=== PATIENT | female | born 1985 | race Caucasian/White ===

== ENCOUNTER 2019-07-27 19:05 | Inpatient (IN) | payer OTHER ==
[2019-07-27] MEDS ORDERED: MISOPROSTOL 100 MCG TABLET PV PRN (20:29)
--- NOTE | 2019-07-27 21:23 | HP ---
Past Medical History - Primary Care Physician PCP:: Jero Gong - Admission Chief Complaint: 33yo P0 with at EGA 37w3d admitted for labor indx due to IUFD. History of Present Illness: complicated by: IUFD diagnosed earlier today Maternal obesity elevated early GCT, normal GTT x 2 History Source: Patient, Medical Record Limitations to Obtaining History: No Limitations - Past Medical History [employer]ATE: No: Alzheimer's, CVA, Dementia, Migraine, Multiple Sclerosis, Peripheral Neuropathy, Parkinson's, Seizure, Syncope, TIA, Vertigo, Other Cardiovascular: No: AFIB, Aneurysm, Aortic Insufficiency, Aortic Stenosis, CAD, CHF, Deep Vein Thrombosis, HTN, Hyperlipdemia, DE, Mitral Insufficiency, Mitral Stenosis, Murmur, Pulmonary Hypertension, Other Pulmonary: No: Asthma, Bronchitis, Cancer, COPD, O2 Dependent, Pneumonia, Previously Intubated, Pulmonary Embolus, Pulmonary Fibrosis, Sleep Apnea, Other Gastrointestinal: No: Ascites, Cancer, Constipation, Crohn's Disease, Diverticulitis, Diverticulosis, Esophageal Varices, Gastritis, GERD, GI Bleed, Hemorrhoids, Hiatal Hernia, Inflamatory Bowel Disease, Irritable Bowel Disease, Pancreatitis, Peptic Ulcer Disease, Ulcerative Colitis, Other Hepatobiliary: No: Cirrhosis, Cholelithiasis, Cholecystitis, Choledocholithiasis , Hepatitis A, Hepatitis B, Hepatitis C, Other Renal/: No: Renal Failure, Renal Inusuff, BPH, Cancer, Hematuria, Hemodialysis , Neurogenic Bladder, Renal Calculi, UTI, Other Reproductive: No: Ectopic , Endometriosis, Fibroids, PID, Polycystic Ovary Syndrome, Postmenopausal, Other ...: 1 ...Para: 0 ... Weeks Gestation by Dates: 37.3 Additional OB History: Obesity, low wt gain Heme/Onc: No: Anemia, B12 Deficiency, Bleeding Disorder, Cancer, Current Chemotherapy, Current Radiation Therapy, Hemochromatosis, Hypercoaguable State, Myeloproliferative Synd, Sickle Cell Disease, Sickle Cell Trait, Thrombocytopenia, Other Infectious Disease: No: AIDS, C-Diff, Herpes Zoster, HIV, MRSA, STD's, Tuberculosis, VREF, Other Psych: No: Addictions, Anxiety, Bipolar, Depression, Panic, Psychosis, Schizophrenia, Other Musculoskeletal: No: Bursitis, Chronic low back pain, Hemiparesis, Hemiplegia, Osteoarthritis, Paraplegia, Other Rheumatology: No: Fibromyalgia, Gout, Lupus, Rheumatoid Arthritis, Sarcoidosis, Vasculitis, Other ENT: No: Allergic Rhinitis, Sinusitis, Other Endocrine: Yes: Other (PCOS) Dermatology: No: Basal Cell, Cellulitis, Eczema, Melanoma, Psoriasis, Squamous Cell, Other - Past Surgical History Past Surgical History: Yes: None Hx Myomectomy: No Hx Transabdominal Cerclage: No - Smoking History Have you smoked in the past 12 months: No - Alcohol/Substance Use Hx Alcohol Use: No History of Substance Use: reports: None - Social History Usual Living Arrangement: Yes: With Significant Other ADL: Independent Occupation: Catering History of Recent Travel: No Home Medications - Allergies Allergies/Adverse Reactions: Allergies Allergy/AdvReac Type Severity Reaction Status Date / Time No Known Allergies Allergy Verified 07/27/19 20:22 Family Medical History Family Hx Cancer: Grandmother (paternal) (breast), Father (stomach) Review of Systems - Review of Systems Constitutional: reports: No Symptoms Eyes: reports: No Symptoms HENT: reports: No Symptoms Neck: reports: No Symptoms Cardiovascular: reports: No Symptoms Respiratory: reports: No Symptoms Gastrointestinal: reports: No Symptoms Genitourinary: reports: No Symptoms Breasts: reports: No Symptoms Reported Musculoskeletal: reports: No Symptoms Integumentary: reports: No Symptoms Neurological: reports: No Symptoms Endocrine: reports: No Symptoms Hematology/Lymphatic: reports: No Symptoms Psychiatric: reports: No Symptoms Pain Intensity: 0 Physical Exam - Maternity Constitutional: Yes: Well Nourished, No Distress, Calm Eyes: Yes: WNL, Conjunctiva Clear, EOM Intact HENT: Yes: WNL, Atraumatic, Normocephalic Neck: Yes: WNL, Supple, Trachea Midline Cardiovascular: Yes: WNL, Regular Rate and Rhythm Lungs: Clear to auscultation, Normal air movement - Abdominal Exam/OB Fundal Height: 38 Number of Fetuses: Single Presentation: Vertex Contractions: No - Vaginal Exam/OB Vaginal Bleediing: No Dilatation (cm): 0 Effacement (%): 0 Amniotic Membrane Status: Intact Presentation: Vertex/Position Station: -4 - Physical Exam Musculoskeletal: Yes: WNL Extremities: Yes: WNL Edema: No Integumentary: Yes: WNL Deep Tendon Reflex Grade: Normal +2 ...Motor Strength: WNL Psychiatric: Yes: WNL, Alert, Oriented Hemorrhage Risk Assessment - Risk Factors Medium Risk Factors: Yes: None High Risk Factors: Yes: None Risk Score: 1 Risk Level: Medium Risk Imaging - Results Ultrasound: Report Reviewed, Image Reviewed Assessment/Plan 33yo P0 with at EGA 37w3d admitted for labor indx due to IUFD. Pt is not in labor. Adequate gynecoid pelvimetry on exam. We had long discussion re: risks, benefits, and alternatives of labor induction. I explained the options of expectant management awaiting spontaneous labor, induction of labor, and elective section. The risks of uterine tachysystole, uterine rupture, need for emergency C/S, hemorrhage, infection, scarring, etc. were discussed. We also discussed the risks of shoulder dystocia , and anesthesia options. The pt requested to proceed with induction. We discussed the alternative methods of induction with Cervidil, Cytotec, Folley ballon, and pitocin. The pt prefers cytotec followed by pitocin, if needed.
[2019-07-27 21:28] LABS: BASO % 0.3 % (0-2.0); EOS % 0.7 % (0-4.5); HEMATOCRIT 39.2 % (32.4-45.2); HEMOGLOBIN 13.1 GM/dL (10.7-15.3); LYMPH % 20.6 % (8-40); MCH 30.9 pg (25.7-33.7); MCHC 33.4 g/dl (32.0-36.0); MEAN CELL VOLUME 92.4 fl (80-96); MEAN PLT VOLUME 9.6 fl (7.5-11.1); MONO % 4.5 % (3.8-10.2); NEUT % 73.9 % (42.8-82.8); PLATELET COUNT 192 K/MM3 (134-434); RBC 4.25 M/mm3 (3.60-5.2); RDW 14.1 % (11.6-15.6); WHITE BLOOD COUNT 10.7 K/mm3 (4.0-10.0)
[2019-07-27] MEDS: MISOPROSTOL 100 MCG TABLET PO PRN (21:41)
[2019-07-27 21:54] LABS: INR 1.03 (0.83-1.09); PROTHROMBIN TIME (PATIENT) 12.1 SEC (9.7-13.0)
[2019-07-27] MEDS: ELECTROLYTE-148 SOLN 1,000 ML IV SCH (22:00)
[2019-07-27 22:01] LABS: BILIRUBIN,TOTAL 0.2 mg/dL (0.2-1); BLOOD UREA NITROGEN 7.1 mg/dL (7-18); CALCIUM 9.1 mg/dL (8.5-10.1); CREATININE 0.4 mg/dL (0.55-1.3); POTASSIUM 3.9 mmol/L (3.5-5.1); TOT PROT 6.9 g/dl (6.4-8.2)
[2019-07-27 22:40] LABS: URINE APPEARANCE CLEAR; URINE BILIRUBIN NEGATIVE (NEGATIVE); URINE COLOR YELLOW; URINE GLUCOSE (UA) NEGATIVE (NEGATIVE); URINE KETONE 1+ (NEGATIVE); URINE LEUK ESTERASE NEGATIVE (NEGATIVE); URINE NITRITE NEGATIVE (NEGATIVE); URINE PROTEIN NEGATIVE (NEGATIVE); URINE UROBILINOGEN 0.2 mg/dL (0.2-1.0)
[2019-07-28 01:26] VITALS: BMI 39.8
[2019-07-28] MEDS: MISOPROSTOL 100 MCG TABLET PO PRN ×2 (01:41→05:41)
[2019-07-28] MEDS ORDERED: OXYTOCIN 30 UNITS in 0.9% NS 30 UNIT/500 ML INFUS.BAG IVPB ONE (07:19)
--- NOTE | 2019-07-28 07:32 | PN ---
Ante-Partal Exam - Subjective Subjective: No complaints. Does not feel contractions. Vital Signs: Vital Signs Temperature 98.6 F 07/28/19 06:00 Pulse Rate 88 07/28/19 06:00 Respiratory Rate 20 07/28/19 06:00 Blood Pressure 110/72 07/28/19 06:00 O2 Sat by Pulse Oximetry (%) Bleeding: No Headache: No Visual changes: No Right upper quadrant pain: No Pain (scale 1-10): 0 - Contractions Contractions: Yes Regularity: Irritability Intensity: Unaware - Exam during Labor Exam: Vaginal Dilatation (cm): 0 Effacement (%): 0 Amniotic Membrane Status: Intact Presentation: Vertex Station: -4 - Intrapartum Hemorrhage Risk Medium Risk Factors: None High Risk Factors: None Risk Score: 0 Risk Level: Low Risk - Assessment/Plan Assessment/Plan: IUFD at 37wks undergoing labor indx. Pt is not in labor and cervical exam w/o change after Cytotec 25mcg PO x 3. Plan to start pitocin IV and monitor progress. Pt requested to find out re: autopsy. Policy was reviewed with pt and will request autopsy after delivery.
[2019-07-28] MEDS: OXYTOCIN 30 UNITS in 0.9% NS 30 UNIT/500 ML INFUS.BAG IVPB SCH (09:01)
[2019-07-28] MEDS: ELECTROLYTE-148 SOLN 1,000 ML IV SCH ×2 (09:01→15:15)
[2019-07-28] MEDS ORDERED: BUTORPHANOL TARTRATE 1 MG/ML VIAL IVPB ONE (14:19)
[2019-07-28] MEDS ORDERED: PROMETHAZINE HCL 25 MG/1 ML VIAL IVPB ONE (14:19)
--- NOTE | 2019-07-28 14:19 | PN ---
Ante-Partal Exam - Subjective Subjective: SROM with thick mec at 2pm. Pt has some mild ctx's. Vital Signs: Vital Signs Temperature 98.7 F 07/28/19 13:00 Pulse Rate 91 H 07/28/19 13:00 Respiratory Rate 20 07/28/19 13:00 Blood Pressure 114/63 07/28/19 13:00 O2 Sat by Pulse Oximetry (%) Bleeding: No Headache: No Visual changes: No Right upper quadrant pain: No Pain (scale 1-10): 6 - Contractions Contractions: Yes Regularity: Irregular Intensity: Mild - Exam during Labor Exam: Vaginal Dilatation (cm): 2 Effacement (%): 50 Amniotic Membrane Status: Leaking Meconium Staining: Thick Presentation: Vertex Station: -2 Remarks: Gynecoid pelvimetry - Intrapartum Hemorrhage Risk Medium Risk Factors: None High Risk Factors: None Risk Score: 0 Risk Level: Low Risk - Assessment/Plan Assessment/Plan: P0 undergoing labor indx due to IUFD at 37w3d. Pt is in early latent labor. Plan to continue pitocin and monitor for progress. The pt is considering pain mgt options.
--- NOTE | 2019-07-28 17:16 | PN ---
Ante-Partal Exam - Subjective Subjective: Patient reports pain with contractions Vital Signs: Vital Signs Temperature 97.9 F 07/28/19 16:00 Pulse Rate 91 H 07/28/19 16:00 Respiratory Rate 20 07/28/19 16:00 Blood Pressure 117/71 07/28/19 16:00 O2 Sat by Pulse Oximetry (%) Bleeding: No Headache: No Visual changes: No Right upper quadrant pain: No - Contractions Contractions: Yes Regularity: Regular - Exam during Labor Exam: Vaginal Dilatation (cm): 2 Effacement (%): 90 Amniotic Membrane Status: Ruptured Presentation: Vertex Station: -3 - Intrapartum Hemorrhage Risk Medium Risk Factors: None High Risk Factors: None Risk Score: 0 Risk Level: Low Risk - Assessment/Plan Assessment/Plan: 33 yo IOL IUFD 1. Pitocin currently at 5 2. Patient desires IV pain medication 3. Will continue with expectant management
[2019-07-28] MEDS ORDERED: BUTORPHANOL TARTRATE 1 MG/ML VIAL ONE ×2 (17:44)
[2019-07-28] MEDS ORDERED: PROMETHAZINE HCL 25 MG/1 ML VIAL ONE (17:45)
[2019-07-28] MEDS ORDERED: LIDOCAINE HCL 1% PRESERVATIVE FREE - 30ML VIAL ONE ×2 (19:29→20:03)
[2019-07-28] MEDS ORDERED: OXYTOCIN 20 UNITS in 0.9% NS 20 UNIT/1,000 ML INFUS.BAG IV ONE (19:29)
[2019-07-28] MEDS: OXYTOCIN 20 UNITS in 0.9% NS 20 UNIT/1,000 ML INFUS.BAG IV SCH (20:04)
--- NOTE | 2019-07-28 20:31 | PN ---
Delivery - Delivery Vaginal Delivery: No Problems Episiotomy/Laceration: Midline, 1st degree EBL (cc): 500 Delivery, Single - Stages of Labor Date 1st Stage Initiatied: 07/28/19 Time 1st Stage Initiated: 17:50 Date 2nd Stage Initiated: 07/28/19 Time 2nd Stage Initiated: 19:25 Date of Delivery: 07/28/19 Time of Delivery: 19:53 Date Placenta Delivered: 07/28/19 Time Placenta Delivered: 20:04 Placenta: Yes: Expressed - Condition of Gender: Female Weight: 5 lb 5 oz Remarks - Remarks Remarks: Patient progressed to fully dilated and at 0753 via delivered a non-viable female , 5lb 5oz (2433g), 19 inches. Cord was clamped and cut. Perineum and vagina examined, a first degree laceration was noted and repaired in the usual fashion. Placenta was delivered spontaneously and intact. 20 units of pitocin in 1 L IVF was given. All counts correct x 2. Mother stable in LDR. EBL 500cc.
[2019-07-28] MEDS ORDERED: ACETAMINOPHEN 325 MG TABLET (FP) PO PRN (20:34)
[2019-07-28] MEDS ORDERED: WITCH HAZEL 50% (TUCKS) 40 PAD/JAR PAD TP PRN (20:34)
[2019-07-28] MEDS ORDERED: BISACODYL 10 MG SUPP.RECT RC PRN (20:34)
[2019-07-28] MEDS ORDERED: BENZOCAINE 20% 57 GM BOTTLE TP PRN (20:34)
[2019-07-28] MEDS ORDERED: IBUPROFEN 600 MG TABLET (FP) PO PRN (20:34)
[2019-07-28] MEDS ORDERED: BENZOCAINE 28 GM HEMORRHOIDAL OINTMENT TP PRN (20:34)
[2019-07-28] MEDS ORDERED: METHYLERGONOVINE MALEATE 0.2 MG/1 ML AMP IM PRN (20:34)
[2019-07-29] MEDS ORDERED: OXYTOCIN 20 UNITS in 0.9% NS 20 UNIT/1,000 ML INFUS.BAG IV ONE (00:04)
--- NOTE | 2019-07-29 04:41 | PN ---
Post Progress Note - Subjective Subjective: Patient without acute complaints. Reports tolerating oral intake without nausea or vomiting. Ambulating without dizziness. Denies fevers or chills. Pain well controlled with oral pain medication. Passing flatus. Post Day: 1 Type of Delivery: Vital Signs: Vital Signs Temperature 98.3 F 07/29/19 01:27 Pulse Rate 113 H 07/29/19 01:27 Respiratory Rate 20 07/29/19 01:27 Blood Pressure 102/64 07/29/19 01:27 O2 Sat by Pulse Oximetry (%) Breast Exam: Yes: Soft Uterus: Yes: Fundus Firm Abdomen/GI: Yes: Abdomen soft, Passing flatus, Tolerating PO. No: Abdominal Distention, Tender Lochia: Yes: Rubra Lochia, amount: Small Extremities: Yes: Calves non-tender, Edema (trace) Perineum: Yes: Laceration Activity: Ambulating - Labs Labs: CBC WBC 10.7 K/mm3 (4.0-10.0) H 07/27/19 20:45 RBC 4.25 M/mm3 (3.60-5.2) 07/27/19 20:45 Hgb 13.1 GM/dL (10.7-15.3) 07/27/19 20:45 Hct 39.2 % (32.4-45.2) 07/27/19 20:45 MCV 92.4 fl (80-96) 07/27/19 20:45 MCH 30.9 pg (25.7-33.7) 07/27/19 20:45 MCHC 33.4 g/dl (32.0-36.0) 07/27/19 20:45 RDW 14.1 % (11.6-15.6) 07/27/19 20:45 Plt Count 192 K/MM3 (134-434) 07/27/19 20:45 MPV 9.6 fl (7.5-11.1) 07/27/19 20:45 Absolute Neuts (auto) 7.9 K/mm3 (1.5-8.0) 07/27/19 20:45 Neutrophils % 73.9 % (42.8-82.8) 07/27/19 20:45 Lymphocytes % 20.6 % (8-40) 07/27/19 20:45 Monocytes % 4.5 % (3.8-10.2) 07/27/19 20:45 Eosinophils % 0.7 % (0-4.5) 07/27/19 20:45 Basophils % 0.3 % (0-2.0) 07/27/19 20:45 Nucleated RBC % 0 % (0-0) 07/27/19 20:45 Kleihauer-Betke Stain Cancelled 07/28/19 10:00 Kleihauer-Betke F Hgb Cancelled 07/28/19 10:00 Assessment/Plan 33 yo PPD # s/p , IUFD, afebrile, tachycardia noted overnight now resolved 1. AM CBC with anemia, will start iron 2. Rh positive, no rhogam indicated 3. Declines autotopsy 4. Patient to follow up in 4 weeks. 5. Patient encouraged to contact MD for: - Severe pain not controlled by oral pain medication - Fevers or chills - Nausea or vomiting, intolerance of oral intake
[2019-07-29 08:12] LABS: BASO % 0.3 % (0-2.0); EOS % 0.2 % (0-4.5); HEMATOCRIT 25.1 % (32.4-45.2); HEMOGLOBIN 8.7 GM/dL (10.7-15.3); LYMPH % 17.8 % (8-40); MCH 32.3 pg (25.7-33.7); MCHC 34.7 g/dl (32.0-36.0); MEAN CELL VOLUME 93.1 fl (80-96); MEAN PLT VOLUME 9.4 fl (7.5-11.1); NEUT % 75.7 % (42.8-82.8); PLATELET COUNT 158 K/MM3 (134-434); RDW 13.8 % (11.6-15.6)
--- NOTE | 2019-07-29 09:30 | DS ---
Physical Exam-BOAT CREW DECK HAND Vital Signs: Vital Signs Temperature 98.3 F 07/29/19 01:27 Pulse Rate 113 H 07/29/19 01:27 Respiratory Rate 20 07/29/19 01:27 Blood Pressure 102/64 07/29/19 01:27 O2 Sat by Pulse Oximetry (%) Labs: CBC, BMP 07/29/19 07:43 07/27/19 20:45 Delivery - Delivery Vaginal Delivery: No Problems Type of Anesthesia: Local Episiotomy/Laceration: Midline, 1st degree EBL (cc): 500 Delivery, Single - Stages of Labor Date 1st Stage Initiatied: 07/28/19 Time 1st Stage Initiated: 17:50 Date 2nd Stage Initiated: 07/28/19 Time 2nd Stage Initiated: 19:25 Date of Delivery: 07/28/19 Time of Delivery: 19:53 Time Placenta Delivered: 20:04 Placenta: Yes: Expressed - Condition of Infant Gender: Female Weight: 5 lb 5 oz Position: Right, OA Total Hours ROM (Hrs/Mins): 6H4M - 1 Minute Total Score: 0 5 Minutes Total Score: 0 Discharge Summary Problems reviewed: Yes Reason For Visit: INDUCTION OF LABOR Current Active Problems IUFD (intrauterine ) (Acute) Procedures: Principal: Vaginal delivery Other Procedures: Induction of labor Hospital Course: Patient was admitted for induction of labor for IUFD She was given cytotec, pitocin, progressed to deliver a non-viable female fetus She was noted to have asymptomatic anemia day #1, and was started on iron supplementation She fulfilled all criteria for discharge home PPD # 1 Condition: Fair - Instructions Diet, Activity, Other Instructions: Physical activity Resume your normal everyday activity as tolerated no heavy lifting or exercise until seen by your surgeon. You may walk unlimited brianna of and climb stairs. You may resume driving the car when you feel safe and comfortable behind the wheel. No sexual activity as instructed. Wound care If you have a bandage, leave it on, and keep dry for 48-72 hours. After that time discard the outer bandage. If they are tapes on the skin under the out of bandage leave them in place. They will peel off in the next 7 to 10 days. Do Not Peel them off. You may shower the day after surgery. If there are tapes present on the skin, you may shower over them. Diet There are no dietary restrictions. Eat healthy, high-fiber foods. Drink 6 to 8 glasses of liquid each day. This will assist in keeping your bowels are regular. Pain management You may take Tylenol or acetaminophen or Ibuprofen (for example, Motrin, Advil etc.) for pain. Call MD for any of the following: Severe pain not relieved by medication Fever of 101 or higher Excessive bleeding or drainage on dressing Inability to urinate Referrals: Jero Gong MD [Staff Physician] - Disposition: HOME - Home Medications Comprehensive Discharge Medication List: Ambulatory Orders Pnv No.95/Ferrous Fum/Folic AC [ Vitamin Tablet] 1 tab PO DAILY Ferrous Sulfate [Feosol] 325 mg PO BID #30 ud 07/29/19 Prescription Drug Monitoring Program (I-STOP) results: I-STOP not reviewed
[2019-07-29] MEDS: FERROUS SO4 325 MG TABLET (FP) PO SCH (17:33)
[2019-07-29] MEDS ORDERED: SENNOSIDES/DOCUSATE COMBO (SENNA PLUS) TABLET (UD) PO PRN (22:00)
[2019-07-30] MEDS: OXYTOCIN 20 UNITS in 0.9% NS 20 UNIT/1,000 ML INFUS.BAG IV SCH (03:55)
[2019-07-30] MEDS: ELECTROLYTE-148 SOLN 1,000 ML IV SCH ×2 (03:55→03:57)
[2019-07-30] MEDS: OXYTOCIN 30 UNITS in 0.9% NS 30 UNIT/500 ML INFUS.BAG IVPB SCH (03:55)
--- NOTE | 2019-07-30 08:46 | PN ---
Progress Note (short form) - Note Progress Note: ppd 2, s/p , anemia , no dizziness , no excess vaginal bleeding CBC, BMP 07/29/19 07:43 07/27/19 20:45 Last Vital Signs Temp Pulse Resp BP Pulse Ox 98.3 F 108 H 20 109/66 07/29/19 20:25 07/29/19 20:25 07/29/19 20:25 07/29/19 20:25 abdomen soft, non tender , no cva uterus firm, non tender lochia mild no calf tenderness impression anemia, tachycardia will repeat cbc today , revaluate
[2019-07-30 09:22] LABS: BASO % 0.4 % (0-2.0); EOS % 0.7 % (0-4.5); HEMATOCRIT 26.7 % (32.4-45.2); LYMPH % 21.8 % (8-40); MCH 31.3 pg (25.7-33.7); MCHC 33.5 g/dl (32.0-36.0); MEAN CELL VOLUME 93.2 fl (80-96); MEAN PLT VOLUME 9.3 fl (7.5-11.1); MONO % 4.7 % (3.8-10.2); NEUT % 72.4 % (42.8-82.8); PLATELET COUNT 182 K/MM3 (134-434); RBC 2.86 M/mm3 (3.60-5.2); WHITE BLOOD COUNT 10.9 K/mm3 (4.0-10.0)
[2019-07-30] MEDS: FERROUS SO4 325 MG TABLET (FP) PO SCH (09:22)
[2019-07-30 09:39] VITALS: BP 113/67; PULSE 93; TEMP 98.6
== END 2019-07-30 10:35 | disposition home or self-care (01) | DRG 560 ==
LOC: JLDR 19:05 → J3W 07-29 01:20
PROVIDERS: ADMIT Obstetrics & Gynecology; ATTEND Obstetrics & Gynecology
PROC: 10E0XZZ Delivery of Products of Conception, External Approach (ICD-10-PCS; principal; 2019-07-28)
PROC: 0HQ9XZZ Repair Perineum Skin, External Approach (ICD-10-PCS; 2019-07-28)
PROC: 0W8NXZZ Division of Female Perineum, External Approach (ICD-10-PCS; 2019-07-28)
DX: O36.4XX0 Maternal care for intrauterine death, not applicable or unspecified (principal); O99.02 Anemia complicating childbirth; O99.214 Obesity complicating childbirth; O70.0 First degree perineal laceration during delivery; Z3A.37 37 weeks gestation of pregnancy; Z37.1 Single stillbirth
CPT/HCPCS: 36415; 59409; 80053; 81003; 81240; 81241; 83036; 84439; 84443; 85025; 85300; 85610; 85613; 85730; 85732; 86593; 86762; 86850; 86900; 86901; 87340; 87389

== ENCOUNTER 2020-11-24 04:41 | Day surgery (SDC) | payer OTHER ==
[2020-11-24 12:39] VITALS: BMI 36.1
[2020-11-24] MEDS ORDERED: PROPOFOL 20 ML ONE ×2 (14:01→14:48)
[2020-11-24] MEDS ORDERED: SUCCINYLCHOLINE CHLORIDE 200 MG/10 ML SYRINGE ONE (14:01)
[2020-11-24] MEDS ORDERED: MIDAZOLAM HCL 2 MG/2 ML SINGLE DOSE VIAL ONE (14:36)
[2020-11-24] MEDS ORDERED: PROMETHAZINE HCL 25 MG/1 ML VIAL IVPUSH PRN (15:11)
[2020-11-24] MEDS ORDERED: ONDANSETRON 4 MG/2 ML VIAL IVPUSH PRN (15:11)
[2020-11-24] MEDS ORDERED: oxyCODONE HCL 5 MG TABLET PO PRN (15:11)
[2020-11-24] MEDS ORDERED: LACTATED RINGERS SOLUTION 1,000 ML IV SCH (15:15)
[2020-11-24 17:54] VITALS: BP 137/85; PULSE 99; TEMP 98
== END 2020-11-24 17:50 | disposition home or self-care (01) ==
LOC: JASU-SURG 04:41
PROVIDERS: ATTEND Obstetrics & Gynecology
PROC: 10D17ZZ Extraction of Products of Conception, Retained, Via Natural or Artificial Opening (ICD-10-PCS; principal; 2020-11-24 14:00)
DX: O03.4 Incomplete spontaneous abortion without complication (principal)
CPT/HCPCS: 88305-TC; 94760

== ENCOUNTER 2024-08-02 07:10 | Inpatient (IN) | payer OTHER ==
[2024-08-02 08:29] VITALS: BMI 36.9
[2024-08-02] MEDS: DINOPROSTONE 10 MG VAGINAL SUPPOSITORY VG ONE (09:20)
[2024-08-02] MEDS: LACTATED RINGERS SOLUTION 1,000 ML IV SCH (09:30)
[2024-08-02 09:37] LABS: BASO % 0.4 % (0-2.0); EOS % 0.8 % (0-4.5); HEMATOCRIT 32.1 % (32.4-45.2); HEMOGLOBIN 10.3 GM/dL (10.7-15.3); LYMPH % 18.1 % (8-40); MCH 29.2 pg (25.7-33.7); MCHC 32.2 g/dl (32.0-36.0); MEAN CELL VOLUME 90.5 fl (80-96); MEAN PLT VOLUME 9.9 fl (7.5-11.1); MONO % 4.4 % (3.8-10.2); NEUT % 76.3 % (42.8-82.8); PLATELET COUNT 164 10^3/uL (134-434); RBC 3.55 M/mm3 (3.60-5.2); RDW 13.5 % (11.6-15.6); WHITE BLOOD COUNT 11.5 K/mm3 (4.0-10.0)
[2024-08-02] MEDS ORDERED: DINOPROSTONE 10 MG VAGINAL SUPPOSITORY VG ONE (09:42)
[2024-08-02 09:43] LABS: INR 0.98 (0.83-1.09); PROTHROMBIN TIME (PATIENT) 11.3 SEC (9.7-13.0)
[2024-08-02 09:46] LABS: ACTIVATED PTT 29.6 SECONDS (25.2-36.5)
[2024-08-02 10:00] LABS: CALCIUM 8.6 mg/dL (8.5-10.1)
[2024-08-02 10:01] LABS: BLOOD UREA NITROGEN 9.3 mg/dL (7-18)
[2024-08-02 10:04] LABS: CREATININE 0.5 mg/dL (0.55-1.3)
[2024-08-02] MEDS ORDERED: AMPICILLIN SODIUM 2 GM VIAL ONE (10:05)
[2024-08-02] MEDS: AMPICILLIN - 2 GM in SODIUM CHLORIDE 100 ML IVPB ONE (10:10)
[2024-08-02] MEDS ORDERED: AMPICILLIN SODIUM 1 GM VIAL ONE ×3 (13:58→21:39)
[2024-08-02] MEDS: AMPICILLIN - 1 GM in SODIUM CHLORIDE 100 ML IVPB SCH (14:00)
[2024-08-02] MEDS ORDERED: OXYTOCIN 30 UNITS in 0.9% NS 30 UNIT/500 ML INFUS.BAG IVPB ONE (18:14)
[2024-08-02] MEDS: OXYTOCIN 30 UNITS in 0.9% NS 30 UNIT/500 ML INFUS.BAG IVPB SCH (18:17)
[2024-08-02] MEDS: LACTATED RINGERS SOLUTION 1,000 ML/1,000 ML INFUS.BAG IV SCH (19:15)
[2024-08-03] MEDS ORDERED: AMPICILLIN SODIUM 1 GM VIAL ONE ×2 (02:07→05:16)
[2024-08-03] MEDS ORDERED: BUTORPHANOL TARTRATE 2 MG/ML VIAL ONE (02:54)
[2024-08-03] MEDS: BUTORPHANOL TARTRATE 1 MG/ML VIAL IVPB ONE (03:00)
[2024-08-03] MEDS: PROMETHAZINE HCL 25 MG/1 ML VIAL IVPB ONE (03:00)
[2024-08-03] MEDS ORDERED: OXYTOCIN 20 UNITS in 0.9% NS 20 UNIT/1,000 ML INFUS.BAG IV ONE (08:44)
[2024-08-03] MEDS ORDERED: METHYLERGONOVINE MALEATE 0.2 MG/1 ML AMP IM PRN (08:50)
[2024-08-03] MEDS ORDERED: BENZOCAINE 28 GM HEMORRHOIDAL OINTMENT TP PRN (08:50)
[2024-08-03] MEDS ORDERED: BENZOCAINE 20% 57 GM BOTTLE TP PRN (08:50)
[2024-08-03] MEDS ORDERED: oxyCODONE HCL 5 MG TABLET PO PRN (08:50)
[2024-08-03] MEDS ORDERED: BISACODYL 10 MG SUPP.RECT RC PRN (08:50)
[2024-08-03] MEDS ORDERED: WITCH HAZEL 50% (TUCKS) 40 PAD/JAR PAD TP PRN (08:50)
[2024-08-03] MEDS ORDERED: ACETAMINOPHEN 325 MG TABLET (FP) PO PRN (08:50)
[2024-08-03] MEDS ORDERED: MISOPROSTOL 200 MCG TABLET ONE (08:51)
[2024-08-03 09:22] LABS: CORD BASE EXCESS -3.9 mmol/L (0-2); CORD HCO3 24.7 mmHg (20-29); CORD PCO2 60.5 mmHg (30-78); CORD pH 7.229 (7.14-7.44)
[2024-08-03 09:30] LABS: CORD BASE EXCESS -5.8 mmol/L (0-2); CORD HCO3 19.9 mmHg (20-29); CORD PCO2 39.8 mmHg (30-78); CORD pH 7.316 (7.14-7.44)
[2024-08-03] MEDS: OXYTOCIN 20 UNITS in 0.9% NS 20 UNIT/1,000 ML INFUS.BAG IV SCH (09:35)
[2024-08-03] MEDS: CARBOPROST TROMETHAMINE 250 MCG/ML AMPUL IM ONE (10:55)
[2024-08-03] MEDS ORDERED: DIPHENOXYLATE 2.5/ATROPINE.025 1 COMBO TABLET ONE (11:04)
[2024-08-03] MEDS: DIPHENOXYLATE 2.5/ATROPINE.025 1 COMBO TABLET PO ONE (11:10)
[2024-08-03] MEDS: PRENATAL VITAMINS W/ FOLIC ACID TABLET (FP) PO SCH (12:21)
[2024-08-04 07:15] LABS: BASO % 0.2 % (0-2.0); EOS % 0.2 % (0-4.5); HEMATOCRIT 24.3 % (32.4-45.2); HEMOGLOBIN 7.9 GM/dL (10.7-15.3); MCH 29.2 pg (25.7-33.7); MCHC 32.7 g/dl (32.0-36.0); MEAN CELL VOLUME 89.3 fl (80-96); MEAN PLT VOLUME 9.8 fl (7.5-11.1); MONO % 5.3 % (3.8-10.2); NEUT % 76.3 % (42.8-82.8); PLATELET COUNT 164 10^3/uL (134-434); RBC 2.72 M/mm3 (3.60-5.2); RDW 13.8 % (11.6-15.6); WHITE BLOOD COUNT 13.5 K/mm3 (4.0-10.0)
[2024-08-04] MEDS: IRON SUCROSE INJECTION 200 MG in SODIUM CHLORIDE 100 ML IVPB ONE (10:16)
[2024-08-04] MEDS: IBUPROFEN 600 MG TABLET (FP) PO PRN (12:32)
[2024-08-04] MEDS ORDERED: SENNOSIDES/DOCUSATE COMBO (SENNA PLUS) TABLET (UD) PO PRN (22:00)
[2024-08-05 10:45] VITALS: BP 114/63; PULSE 99; RESP 17; TEMP 98.3
== END 2024-08-05 13:55 | disposition home or self-care (01) | DRG 560 ==
LOC: JLDR 07:10 → J3W 08-03 13:00
PROVIDERS: ADMIT Obstetrics & Gynecology; ATTEND Obstetrics & Gynecology
PROC: 0HQ9XZZ Repair Perineum Skin, External Approach (ICD-10-PCS; principal; 2024-08-03)
PROC: 10E0XZZ Delivery of Products of Conception, External Approach (ICD-10-PCS; 2024-08-03)
DX: O24.424 Gestational diabetes mellitus in childbirth, insulin controlled (principal); O72.1 Other immediate postpartum hemorrhage; O99.02 Anemia complicating childbirth; D64.9 Anemia, unspecified; O70.0 First degree perineal laceration during delivery; Z3A.38 38 weeks gestation of pregnancy; Z37.0 Single live birth
CPT/HCPCS: 36415; 36600; 59409; 80048; 82803; 82962; 85025; 85610; 85730; 86780; 86850; 86900; 86901; J1756